=== PATIENT | male | born 1975 | race Caucasian/White ===

== ENCOUNTER 2017-01-17 07:42 | Emergency (ER) | payer BC ==
[~2017-01-17] VITALS: Ht 188 cm; Wt 95.8 kg
[2017-01-17 07:47] VITALS: BP 142/85; PULSE 96; RESP 16; TEMP 99.2; O2SAT 98
[2017-01-17] MEDS ORDERED: PENI500T PO (08:26)
--- NOTE | 2017-01-17 08:32 | PD ---
HPI Chief Complaint: ENT Complaint Time Seen by Provider: 08:15 Travel History International Travel<30 days: No Contact w/Intl Traveler<30days: No Traveled to known affect area: No History of Present Illness HPI This patient complains of sore throat. Duration is 24 hours. He denies fever. Has pain when swallowing. No alleviating factors PFSH Past Medical History Medical History: Denies Significant Hx Social History Alcohol Use: No Tobacco Use: Yes (<1/2 PPD) Substance Use: No Allergies-Medications (Allergen,Severity, Reaction): Coded Allergies: No Known Allergies (Unverified , 01/17/17) Reported Meds & Prescriptions Reported Meds & Active Scripts Active No Active Prescriptions or Reported Medications Review of Systems General / Constitutional: No: Fever HENT: No: Headaches Cardiovascular: No: Chest Pain or Discomfort Respiratory: No: Cough Physical Exam Narrative Throat: Diffusely erythematous but uvula midline without exudate TMs normal SKIN: Focused skin assessment reveals no rash or ulcers. Skin is warm and dry. Palpation shows no induration or nodules. Psych: Normal mood and affect. Normal insight and judgment. Data Data Last Documented VS Vital Signs Date Time Temp Pulse Resp B/P (MAP) Pulse Ox O2 Delivery O2 Flow Rate FiO2 01/17/17 07:47 99.2 96 16 142/85 (104) 98 MDM Medical Decision Making Medical Screen Exam Complete: Yes Emergency Medical Condition: Yes Medical Record Reviewed: Yes Differential Diagnosis Pharyngitis, URI, otitis Narrative Course I have reviewed the patient's electronic medical record. Presentation consistent with a strep pharyngitis. 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 He has no viral symptoms such as runny nose congestion cough etc. Penicillin prescribed Diagnosis Primary Impression: Pharyngitis, acute Qualified Codes: J02.9 - Acute pharyngitis, unspecified Additional Instructions: The patient was advised to follow up with their physician and return if they worsen. Med/Other Pt SpecificInfo: Prescription(s) given Scripts Penicillin V Potassium (Penicillin V Potassium) 500 Mg Tab 500 MG PO Q8H for Infection for 7 Days, #21 TAB 0 Refills Prov: Mumtaz Haro MD 01/17/17 Disposition: 01 DISCHARGE HOME Condition: Stable Mumtaz Haro MD Jan 17, 2017 08:32
== END 2017-01-17 08:44 | disposition home or self-care (01) ==
LOC: PHED 07:42
DX: J02.9 Acute pharyngitis, unspecified (principal); Z72.0 Tobacco use
CPT/HCPCS: 99283